=== PATIENT | female | born 1995 | race African-American/Black ===

== ENCOUNTER 2020-05-22 22:23 | Emergency (ER) | payer OTHER ==
[2020-05-22] MEDS ORDERED: KETOCONAZOLE 2% CREAM 15 GM TUBE TOP STA (22:51)
--- NOTE | 2020-05-22 23:15 | ED Physician Documentation ---
PD HPI SKIN - Stated complaint Stated Complaint: ALLERGIC REACTION - Chief complaint Chief Complaint: Wound - History obtained from History obtained from: Patient - Additional information Additional information: The patient is in the [place].She transferred here today from [place]. She is concerned as she has developed a rash in her hairline that is itchy, burning and draining trace amounts of liquid. This is never happened before. She wonders if it is an allergy. However, she has not used any new detergents, creams or, soaps or make-up. She does wear a hat on a regular basis while at work. Review of Systems Constitutional: reports: Reviewed and negative Eyes: reports: Reviewed and negative Ears: reports: Reviewed and negative Nose: reports: Reviewed and negative Throat: reports: Reviewed and negative Cardiac: reports: Reviewed and negative Respiratory: reports: Reviewed and negative GI: reports: Reviewed and negative : reports: Reviewed and negative Skin: reports: Rash, Reviewed and negative Musculoskeletal: reports: Reviewed and negative Neurologic: reports: Reviewed and negative Psychiatric: reports: Reviewed and negative Endocrine: reports: Reviewed and negative Immunocompromised: reports: Reviewed and negative PD PAST MEDICAL HISTORY - Past Medical History Past Medical History: Yes - Past Surgical History Past Surgical History: No - Present Medications Home Medications: Ambulatory Orders Medication Instructions Recorded Confirmed Hydrocortisone 1% Oint 28 gm TP BID 10 Days #1 oint...g. 05/22/20 [Hydrocortisone] Ketoconazole 120 ml TP DAILY 10 Days #1 shampoo 05/22/20 - Allergies Allergies/Adverse Reactions: Allergies Allergy/AdvReac Type Severity Reaction Status Date / Time No Known Drug Allergies Allergy Verified 05/22/20 22:29 - Social History Does the pt smoke?: No Smoking Status: Never smoker Does the pt drink ETOH?: Yes Does the pt have substance abuse?: No - Immunizations Immunizations are current?: Yes - POLST Patient has POLST: No PD ED PE NORMAL - Vitals Vital signs reviewed: Yes - General General: No acute distress - HEENT HEENT: PERRL - Neck Neck: Supple, no meningeal sign - Cardiac Cardiac: RRR, No murmur - Respiratory Respiratory: Clear bilaterally - Abdomen Abdomen: Normal bowel sounds, Soft, Non tender, Non distended - Female Female : Other (Erythematous, weeping vesicular rash with confluence extending along her anterior hairline and upper forehead.) - Derm Derm: Warm and dry - Extremities Extremities: No deformity - Psych Psych: Normal mood, Normal affect Results - Vitals Vitals: Vital Signs - 24 hr 05/22/20 05/22/20 05/22/20 22:26 22:32 23:26 Temperature 37.1 C 37.1 C 37 C Heart Rate 77 77 72 Respiratory 16 16 16 Rate Blood Pressure 132/113 H 132/98 H 130/82 H O2 Saturation 98 99 100 Oxygen O2 Source Room air PD MEDICAL DECISION MAKING - ED course ED course: Likely, her dermatitis appears to be seborrheic or possibly fungal in origin. She acknowledges that she has been wearing a hat regularly in the [facility] where she was just recently stationed. She was provided prescriptions for both ketoconazole shampoo as well as 1% hydrocortisone cream. We reviewed the appropriate use, risks and side effects of this. Additionally, I encouraged her to talk with medical staff at the [employer] [facility] to see if she would be eligible for a profile cannot wear her hat until this area heals. Departure - Departure Disposition: 01 Home, Self Care Clinical Impression: Seborrhea capitis Instructions: Seborrheic Dermatitis Prescriptions: Hydrocortisone 1% Oint [Hydrocortisone] 28 gm TP BID 10 Days #1 oint...g. Ketoconazole 120 ml TP DAILY 10 Days #1 shampoo Discharge Date/Time: 05/22/20 23:27
[2020-05-22 23:27] VITALS: BP 130/82
== END 2020-05-22 23:27 | disposition home or self-care (01) ==
LOC: ED 22:23
DX: L21.0 Seborrhea capitis (principal)
CPT/HCPCS: 99282; 99284

== ENCOUNTER 2023-02-03 17:09 | Emergency (ER) | payer OTHER ==
[2023-02-03 17:18] VITALS: BP 123/82
[2023-02-03] MEDS ORDERED: DEXAMETHASONE 10 MG/ML VIAL PO STA (17:24)
[2023-02-03] MEDS ORDERED: CHERRY SYRUP 10 ML UDC PO ONE (17:24)
--- NOTE | 2023-02-03 17:26 | ED Physician Documentation ---
History of Present Illness - Stated complaint Stated Complaint: THROAT PX/DIFF SWALLOWING - Chief complaint Chief Complaint: Heent - Additonal information Additional information: 27-year-old female presents emergency department for evaluation of right-sided sore throat that began yesterday. She endorses a dry cough but no fevers. No tonsillar exudate. No lymphadenopathy. States that about a week ago she completed a course of amoxicillin for sinusitis. Denies similar illness in others at home. Review of Systems Constitutional: denies: Fever Nose: denies: Congestion Throat: reports: Sore throat. denies: Swollen tonsils, Swallowed foreign body Cardiac: reports: Reviewed and negative Respiratory: reports: Cough GI: reports: Reviewed and negative PD PAST MEDICAL HISTORY - Past Surgical History Past Surgical History: No - Allergies Allergies/Adverse Reactions: Allergies Allergy/AdvReac Type Severity Reaction Status Date / Time No Known Drug Allergies Allergy Verified 05/22/20 22:29 - Social History Does the pt smoke?: No Smoking Status: Never smoker Does the pt drink ETOH?: Yes Does the pt have substance abuse?: No - Immunizations Immunizations are current?: Yes - POLST Patient has POLST: No PD ED PE NORMAL - General General: Alert and oriented X 3, No acute distress - HEENT HEENT: Atraumatic, Moist mucous membranes, Pharynx benign (Mild right-sided posterior oropharynx erythema without tonsillar exudate or soft palate asymmetry or swelling. Uvula is midline. Normal phonation normal swallow.) - Neck Neck: No adenopathy (No tender anterior cervical lymphadenopathy) - Cardiac Cardiac: RRR - Respiratory Respiratory: No respiratory distress, Clear bilaterally Results - Vitals Vitals: Vital Signs - 24 hr 02/03/23 17:12 Temperature 36.4 C L Heart Rate 69 Respiratory 20 Rate Blood Pressure 123/82 H O2 Saturation 100 Oxygen O2 Source Room air - Labs Labs: Laboratory Tests 02/03/23 17:26 Group A Strep Rapid Negative PD Medical Decision Making - ED course Complexity details: reviewed results, re-evaluated patient, considered differential, d/w patient ED course: 27-year-old female presents emergency department for evaluation of 2 days of right-sided throat pain. On exam there is mild posterior oropharynx erythema without exudate, asymmetry or uvular deviation. She recently completed a course of amoxicillin for sinusitis. Rapid strep today is negative. No evidence of RPA or [employer] on exam. I discussed with patient deferral of antibiotics unless culture was positive. In order to help manage pain and symptoms she was given a single dose of 10 mg Decadron orally in the ER. Advised Tylenol and ibuprofen [id number] as well as warm salt water rinses. The usual emergent return precautions worsening symptoms was discussed. Departure - Departure Disposition: 01 Home, Self Care Clinical Impression: Sore throat Condition: Stable Record reviewed to determine appropriate education?: Yes Comments: As discussed at the bedside your rapid strep testing is negative today. We are sending the swab for culture and we will notify you within the next 48 hours if it is positive and order antibiotics at that time. Today in the emergency department we gave you a single dose of Decadron which is an oral steroid. He should help with pain and inflammation over the next several days. In general I would ask you to take Tylenol and ibuprofen [id number] for discomfort as well as gargling with warm salt water. Return to the ER if you find that you are having worsening symptoms, inability to swallow or speak normally or tolerate your oral secretions.
[2023-02-03 17:44] LABS: RAPID STREP SCREEN Negative (Negative)
== END 2023-02-03 17:54 | disposition home or self-care (01) ==
LOC: ED 17:09
DX: J02.9 Acute pharyngitis, unspecified (principal)
CPT/HCPCS: 87070; 87430; 99283; A9270